=== PATIENT | female | born 1955 | race Caucasian/White ===

== ENCOUNTER 2018-01-27 08:03 | Emergency (ER) | payer MEDICAID, OTHER ==
--- NOTE | 2018-01-27 09:02 | EDPHY ---
HPI/HX/ROS/PE/MDM Narrative: CHIEF COMPLAINT: Dizziness, lightheadedness HPI: The patient is a 62 y/o female arriving with her complaining of dizziness onset yesterday. Her dizziness began upon sitting up out of bed yesterday and has been persistent since then. Initially she describes it as "room-spinning" yesterday morning upon waking, but reports this has subsided and it's now a sensation of lightheadedness "like a hangover." Symptoms improve when lying down and when walking. She denies chest pain, dyspnea, vision changes , weakness, numbness, balance issues, fever, urinary symptoms, recent trauma, or recent illness. She does feel some mild tingling in her hands and feet bilaterally. She denies new medications or vitamins. No history of cardiac disease. She notes she saw her PCP on Monday, 4 days ago, for ongoing neck and shoulder pain and during that visit her blood pressure was elevated around 179 systolic. She was advised to check her BP regularly over the next month before a follow up appointment, though she has not done this yet. She is scheduled to get x- rays of her neck. REVIEW OF SYSTEMS: A comprehensive 10 system review of systems is otherwise negative aside from elements mentioned in the history of present illness. PMH: "shaky hand thing for 20 years;" rotator cuff injury SOCIAL HISTORY: at bedside. Lives in [place]. Retired. PHYSICAL EXAM: General:Patient is alert, in no acute distress. ENT:Eyes are normal to inspection. EOMI. ENT inspection normal. Neck: Normal inspection. Full range of motion. Respiratory:No respiratory distress. Breath sounds normal bilaterally. Cardiovascular: Regular rate and rhythm. Strong peripheral pulses. Normal cap refill. Abdomen:The abdomen is nontender to palpation. There are no peritoneal signs. Back: Normal to inspection. No tenderness to palpation. Skin: Normal color. No rash. Warm and dry. Extremities: Normal appearance. Full range of motion. Neuro: Oriented x3. Normal motor function. Normal sensory function. No pronator drift. Normal [id number] bilaterally. Normal [id number] bilaterally. ED Course: This is a 62 y/o female who presents with a 1-day history of dizziness and lightheadedness. She notes her blood pressure was high at a PCP visit earlier this week and she's had ongoing neck and shoulder pain that she feels could be contributing to her symptoms. Her exam is unremarkable. Nonfocal neuro exam. Plan for IV, labs, UA, EKG, and cervical spine x-ray. 1L IV NS ordered. The 12 lead EKG was interpreted by myself. See hard copy and/or "tracemaster" electronic copy for interpretation. C-spine x-ray negative. Labs including troponin are normal. Reassessed patient and discussed findings. I've identified no concerning cause for her lightheadedness thus far. She understands the etiology is unknown, but would like to return home at this time. She will be discharged with standard care and follow up instructions. Return precautions discussed. - Data Points Imaging Results: Imaging Impressions Cervical Spine X-Ray 01/27/18 09:13 Impression: No source for dizziness identified. Imaging: I viewed and interpreted images myself Laboratory Results: Laboratory Results 01/27/18 09:35 01/27/18 09:35 01/27/18 01/27/18 01/27/18 09:41 09:35 09:35 WBC 6.21 10^3/uL 10^3/uL (3.80-9.50) RBC 5.01 10^6/uL 10^6/uL (4.18-5.33) Hgb 14.7 g/dL g/dL (12.6-16.3) Hct 43.1 % % (38.0-47.0) MCV 86.0 fL fL (81.5-99.8) MCH 29.3 pg pg (27.9-34.1) MCHC 34.1 g/dL g/dL (32.4-36.7) RDW 12.9 % % (11.5-15.2) Plt Count 208 10^3/uL 10^3/uL (150-400) MPV 11.1 fL fL (8.7-11.7) Neut % (Auto) 63.9 % % (39.3-74.2) Lymph % (Auto) 29.3 % % (15.0-45.0) [place] % (Auto) 4.3 % L % (4.5-13.0) Eos % (Auto) 1.6 % % (0.6-7.6) Baso % (Auto) 0.6 % % (0.3-1.7) Nucleat RBC Rel Count 0.0 % % (0.0-0.2) Absolute Neuts (auto) 3.96 10^3/uL 10^3/uL (1.70-6.50) Absolute Lymphs (auto) 1.82 10^3/uL 10^3/uL (1.00-3.00) Absolute Monos (auto) 0.27 10^3/uL L 10^3/uL (0.30-0.80) Absolute Eos (auto) 0.10 10^3/uL 10^3/uL (0.03-0.40) Absolute Basos (auto) 0.04 10^3/uL 10^3/uL (0.02-0.10) Absolute Nucleated RBC 0.00 10^3/uL 10^3/uL (0-0.01) Immature Gran % 0.3 % % (0.0-1.1) Immature Gran # 0.02 10^3/uL 10^3/uL (0.00-0.10) Sodium 142 mEq/L mEq/L (135-145) Potassium 4.2 mEq/L mEq/L (3.3-5.0) Chloride 111 mEq/L H mEq/L (97-110) Carbon Dioxide 22 mEq/l mEq/l (22-31) Anion Gap 9 mEq/L mEq/L (6-14) BUN 19 mg/dL mg/dL (7-23) Creatinine 0.9 mg/dL mg/dL (0.6-1.0) Estimated GFR > 60 Glucose 115 mg/dL H mg/dL (70-100) Calcium 9.8 mg/dL mg/dL (8.5-10.4) POC Troponin I 0.00 ng/mL ng/mL (0.00-0.08) Medications Given: Discontinued Medications Sodium Chloride (Ns) 1,000 mls @ 0 mls/hr IV EDNOW ONE; Wide Open PRN Reason: Protocol Stop: 01/27/18 09:14 Last Admin: 01/27/18 09:37 Dose: 1,000 mls Point of Care Test Results: Chemistry 01/27/18 09:41 POC Troponin I 0.00 ng/mL ng/mL (0.00-0.08) General Time Seen by Provider: 01/27/18 08:31 Initial Vital Signs: Initial Vital Signs Temperature (C) 36.7 C 01/27/18 08:16 Heart Rate 70 01/27/18 08:16 Respiratory Rate 16 01/27/18 08:16 Blood Pressure 156/86 H 01/27/18 08:16 O2 Sat (%) 97 01/27/18 08:16 O2 Delivery Mode Room Air Allergies/Adverse Reactions: No Known Allergies Allergy (Unverified 01/27/18 08:16) Home Medications: Medication Instructions Recorded Aspirin 81mg (*) 01/27/18 Departure - Departure Disposition: Home, Routine, Self-Care Clinical Impression: Lightheadedness Condition: Good Instructions: Lightheadedness (ED) Additional Instructions: Please follow up with your primary care provider for unimproved symptoms over the next 2-3 days. Return to the ED for worsening of condition. Referrals: Susana Butler MD [Primary Care Provider] - As per Instructions Report Scribed for: Rico Lawler Report Scribed by: Rita Galvez Date of Report: 01/27/18 Time of Report: 08:42 Physician Review and Approval Statement: Portions of this note were transcribed by an ED scribe. I personally performed the history, physical exam, and medical decision making; and confirm the accuracy of the information in the transcribed note.
[2018-01-27] MEDS ORDERED: NS 1,000 ML IV ONE (09:13)
[2018-01-27 09:46] LABS: PLATELET COUNT 208 10^3/uL (150-400)
[2018-01-27 11:10] VITALS: BP 153/97
--- NOTE | 2018-01-29 20:27 | CPEKG ---
Test Reason : OPEN Blood Pressure : / mmHG Vent. Rate : 069 BPM Atrial Rate : 068 BPM P-R Int : 135 ms QRS Dur : 071 ms QT Int : 442 ms P-R-T Axes : 066 051 048 degrees QTc Int : 474 ms Sinus rhythm Abnormal R-wave progression, early transition Confirmed by Rico Lawler ([id number]) on 01/29/2018 8:26:28 PM Referred By: Confirmed By:Rico Lawler
== END 2018-01-27 11:16 | disposition home or self-care (01) ==
DX: R42 Dizziness and giddiness (principal); E86.9 Volume depletion, unspecified; R03.0 Elevated blood-pressure reading, without diagnosis of hypertension
CPT/HCPCS: 84484-PO

== ENCOUNTER 2018-01-28 12:23 | Emergency (ER) | payer OTHER ==
--- NOTE | 2018-01-28 13:17 | EDPHY ---
HPI/HX/ROS/PE/MDM Narrative: CHIEF COMPLAINT: Lightheaded, headache HPI: The patient is a 62 y/o female seen here yesterday for lightheadedness and headache complaining of worsening of symptoms. Monday, she was seen by her primary care provider for pain in her back and shoulder blades at which time it was noted she has hypertension. Monday, she developed lightheadedness and was seen here. An etiology was not determined for her symptoms and she requested to leave and return if symptoms worsened. Today, she was sitting at her table when she got lightheaded, slumping towards the table. She has associated headache, numbness in her hands, numbness and tingling in her feet, and pain across her back and shoulder blades. She denies difficulty breathing or any other associated symptoms. She reports an increase in postnasal drip and pain when wearing shoes. REVIEW OF SYSTEMS: Aside from elements discussed in the HPI, a comprehensive 10-point review of systems was reviewed and is negative. PMH: Hypertension SOCIAL HISTORY: Lives in [place], , retired, at bedside PHYSICAL EXAM: General:Patient is alert, in no acute distress. ENT:Eyes are normal to inspection. ENT inspection normal. Neck: Normal inspection. Full range of motion. Respiratory:No respiratory distress. Breath sounds normal bilaterally. Cardiovascular: Regular rate and rhythm. Strong peripheral pulses. Normal cap refill. Abdomen:The abdomen is nontender to palpation. There are no peritoneal signs. There are normal bowel sounds. Back: Normal to inspection. No tenderness to palpation. Skin: Normal color. No rash. Warm and dry. Extremities: Normal appearance. Full range of motion. Neuro: Oriented x3. Normal motor function. Normal sensory function. Normal gait. manager electrical intact. No ataxia. ED Course: Study: CT of the head Indication: Lightheaded, headache, near syncope Results: CT scan of the head was obtained. The results of the study are: normal The study was read by the radiologist, Dr. Christianson. I viewed the images myself on the PACS system. The patient presents with worsening lightheadedness and headache. She was seen yesterday by me for similar symptoms and instructed to come back if the symptoms worsened. At this time, I feel a head CT is warranted. Plan for head CT , EKG, CBC, basic metabolic panel, TSH, troponin. 1:35 PM - The CT is normal. Labs pending at this time. 2:20 PM - Labs are not concerning. I offered the patient MRI or admission for observation. She refused. Follow up instructions and return precautions given. MDM: This patient returns to the ED after visit yesterday with continued episodes of 'lightheadedness.' Patient now asymptomatic. She tells me that she has had vertigo in the past and this is definitely not happening now. She also denies any difficulty walking or ataxia, making cerebellar CVA or vertebral insufficiency very unlikely. Repeat troponin and ECG remain normal, making cardiac etiology unlikely. Patient did not display any arrhythmia on tele monitor. No signs of infection. Patient understands that etiology of symptoms is unknown. We discussed option of starting the patient on an anti-hypertensive , and I have written for a low-dose of amlodipine. Patient will follow-up with her PCP closely. - Data Points Imaging Results: Imaging Impressions Head CT 01/28/18 13:12 Impression: Head CT within normal limits. Results called to Dr. Rico Lawler at 1:36 PM General information for patients regarding this examination can be found at [email or web address]. If you have questions or comments about this report, please contact me at (hospital) or [phone] (cell). Laboratory Results: Laboratory Results 01/28/18 13:30 01/28/18 13:30 01/28/18 01/28/18 01/28/18 13:43 13:30 13:30 WBC 7.74 10^3/uL 10^3/uL (3.80-9.50) RBC 5.36 10^6/uL H 10^6/uL (4.18-5.33) Hgb 15.5 g/dL g/dL (12.6-16.3) Hct 46.0 % % (38.0-47.0) MCV 85.8 fL fL (81.5-99.8) MCH 28.9 pg pg (27.9-34.1) MCHC 33.7 g/dL g/dL (32.4-36.7) RDW 13.0 % % (11.5-15.2) Plt Count 210 10^3/uL 10^3/uL (150-400) MPV 11.3 fL fL (8.7-11.7) Neut % (Auto) 70.5 % % (39.3-74.2) Lymph % (Auto) 23.5 % % (15.0-45.0) [place] % (Auto) 4.0 % L % (4.5-13.0) Eos % (Auto) 1.2 % % (0.6-7.6) Baso % (Auto) 0.5 % % (0.3-1.7) Nucleat RBC Rel Count 0.0 % % (0.0-0.2) Absolute Neuts (auto) 5.46 10^3/uL 10^3/uL (1.70-6.50) Absolute Lymphs (auto) 1.82 10^3/uL 10^3/uL (1.00-3.00) Absolute Monos (auto) 0.31 10^3/uL 10^3/uL (0.30-0.80) Absolute Eos (auto) 0.09 10^3/uL 10^3/uL (0.03-0.40) Absolute Basos (auto) 0.04 10^3/uL 10^3/uL (0.02-0.10) Absolute Nucleated RBC 0.00 10^3/uL 10^3/uL (0-0.01) Immature Gran % 0.3 % % (0.0-1.1) Immature Gran # 0.02 10^3/uL 10^3/uL (0.00-0.10) Sodium 143 mEq/L mEq/L (135-145) Potassium 3.7 mEq/L mEq/L (3.3-5.0) Chloride 109 mEq/L mEq/L (97-110) Carbon Dioxide 21 mEq/l L mEq/l (22-31) Anion Gap 13 mEq/L mEq/L (6-14) BUN 16 mg/dL mg/dL (7-23) Creatinine 0.8 mg/dL mg/dL (0.6-1.0) Estimated GFR > 60 Glucose 97 mg/dL mg/dL (70-100) Calcium 9.8 mg/dL mg/dL (8.5-10.4) POC Troponin I 0.00 ng/mL ng/mL (0.00-0.08) TSH Pending Point of Care Test Results: Chemistry 01/28/18 13:43 POC Troponin I 0.00 ng/mL ng/mL (0.00-0.08) General Time Seen by Provider: 01/28/18 12:33 Initial Vital Signs: Initial Vital Signs Temperature (C) 37.0 C 01/28/18 12:26 Heart Rate 88 01/28/18 12:26 Respiratory Rate 20 01/28/18 12:26 Blood Pressure 156/82 H 01/28/18 12:26 O2 Sat (%) 97 01/28/18 12:26 O2 Delivery Mode Room Air Allergies/Adverse Reactions: No Known Allergies Allergy (Verified 01/28/18 12:25) Home Medications: Medication Instructions Recorded Aspirin 81mg (*) 01/27/18 amLODIPine BESYLATE [Norvasc 2.5 2.5 mg PO DAILY #10 tab 01/28/18 mg (*)] Departure - Departure Disposition: Home, Routine, Self-Care Clinical Impression: Lightheadedness Headache Qualifiers: Headache type: unspecified Headache chronicity pattern: acute headache Intractability: not intractable Qualified Code(s): R51 - Headache Condition: Good Instructions: Acute Headache (ED), Near Syncope (ED), Lightheadedness (ED) Additional Instructions: 1. Please follow up with your primary care provider for continued symptoms in 2 to 3 days. 2. Return to the emergency department for any worsening of condition. Referrals: Susana Butler MD [Primary Care Provider] - As per Instructions Prescriptions: amLODIPine BESYLATE [Norvasc 2.5 mg (*)] 2.5 mg PO DAILY #10 tab Report Scribed for: Rico Lawler Report Scribed by: Ayala Gutierrez Date of Report: 01/28/18 Time of Report: 13:19 Physician Review and Approval Statement: Portions of this note were transcribed by an ED scribe. I personally performed the history, physical exam, and medical decision making; and confirm the accuracy of the information in the transcribed note.
[2018-01-28 13:51] LABS: PLATELET COUNT 210 10^3/uL (150-400)
[2018-01-28 14:39] VITALS: BP 181/113
--- NOTE | 2018-01-29 20:27 | CPEKG ---
Test Reason : OPEN Blood Pressure : / mmHG Vent. Rate : 061 BPM Atrial Rate : 061 BPM P-R Int : 127 ms QRS Dur : 076 ms QT Int : 450 ms P-R-T Axes : 052 016 022 degrees QTc Int : 454 ms Sinus rhythm Atrial premature complex Low voltage, precordial leads Abnormal R-wave progression, early transition Confirmed by Rico Lawler ([id number]) on 01/29/2018 8:27:39 PM Referred By: Confirmed By:Rico Lawler
== END 2018-01-28 14:38 | disposition home or self-care (01) ==
DX: R42 Dizziness and giddiness (principal); R51 Headache; R55 Syncope and collapse
CPT/HCPCS: 84484-PO

== ENCOUNTER → 2018-05-11 | Outpatient (CLI) | payer OTHER ==
[~2018-05-11] MED LIST: LIDOCAINE 1% 300 MG/30 ML SDV ONE
[2018-05-11 09:31] LABS: INR 0.95 (0.83-1.16); PROTIME(PATIENT) 12.9 SEC (12.0-15.0)
== END ==
LOC: FIMAGING 08:24
PROVIDERS: ATTEND Physician Assistant Medical
PROC: 009U3ZX Drainage of Spinal Canal, Percutaneous Approach, Diagnostic (ICD-10-PCS; principal; 2018-05-11)
DX: R51 Headache (principal)

== ENCOUNTER → 2018-06-15 | Outpatient (CLI) | payer OTHER | LOC: FIMAGING 13:30 ==

== ENCOUNTER 2018-07-11 10:53 | Emergency (ER) | payer OTHER ==
--- NOTE | 2018-07-11 11:17 | EDPHY ---
HPI/HX/ROS/PE/MDM Narrative: CHIEF COMPLAINT: HPI: This patient is a 63-year-old female complaining of lightheadedness and shakiness ongoing since January,. She was initially evaluated twice in this emergency department for these symptoms, and has subsequently followed up with neurology over the past several months. She has undergone MRI of her brain and neck as well as a lumbar puncture, and reports these were all negative. Her symptoms have been worsening progressively since onset, and are worse today than ever. She feels lightheaded and shaky "all the time 24 hours per day, I can hardly sleep". She endorses a sensation of racing heart while at rest. At her last neurology appointment one week ago, she was referred to cardiology and is scheduled for an anointment today at 1:15. She feels her symptoms are so severe today that she would not make it to that appointment and presents here to the emergency department for evaluation. She denies any recent head or neck trauma. No fever, nausea, chest pain, difficulty breathing, or other associated symptoms. REVIEW OF SYSTEMS: A comprehensive 10 system review of systems is otherwise negative aside from elements mentioned in the history of present illness and medical decision making. PMH: Denies apart from elements discussed in HPI. SOCIAL HISTORY: at bedside. Lives in [place]. Retired. PHYSICAL EXAM: General:Patient is alert, in no acute distress. ENT:Eyes are normal to inspection. ENT inspection normal. Neck: Normal inspection. Full range of motion. Respiratory:No respiratory distress. Breath sounds normal bilaterally. Cardiovascular: Regular rate and rhythm. Strong peripheral pulses. Normal cap refill. Abdomen:The abdomen is nontender to palpation. There are no peritoneal signs. There are normal bowel sounds. Back: Normal to inspection. No tenderness to palpation. Skin: Normal color. No rash. Warm and dry. Extremities: Normal appearance. Full range of motion. Neuro: Oriented x3. Normal motor function. Normal sensory function. ED Course: 63-year-old female complaining of lightheadedness and shakiness ongoing since January,. She was scheduled for a cardiology appointment this afternoon for followup. Plan for EKG, chest x-ray, labs including CBC, chemistries, troponin. EKG was ordered and interpreted by myself. Please see [employer] system for official reading. Laboratory studies unremarkable. Troponin 0.00. Chest x-ray is negative for acute processes. Discussed options for further evaluation with the patient. She would like to attend her outpatient cardiology appointment if this can be reinstated for this afternoon. Plan to consult with cardiology. Spoke with JARAD Arreola for cardiology. Patient is able to retain her appointment this afternoon. Plan to discharge in good condition directly to cardiology for followup. Follow up and return precautions discussed. The patient is comfortable with this plan. MDM: This patient presents for ongoing symptoms of approximately 6 months duration. She has been seen in the ED three times now by myself over that period with negative extensive workup. She has also had extensive negative outpatient evaluation by Neurology including negative MRI and LP. She initially had an appointment with Cardiology at 1:30pm today but came to the ED instead. I discussed options with her including admission to the hospital for observation vs. discharge and follow-up with Cardiology as scheduled. She has chosen the latter, and feels comfortable enough to walk over there. I called Thu from Cardiology who was able to reinstate her original appointment which had been canceled. - Data Points Imaging Results: Imaging Impressions Chest X-Ray 07/11/18 11:14 Impression: Normal chest. Imaging: I viewed and interpreted images myself Laboratory Results: Laboratory Results 07/11/18 11:36 07/11/18 11:36 07/11/18 07/11/18 07/11/18 11:52 11:36 11:36 WBC 6.77 10^3/uL 10^3/uL (3.80-9.50) RBC 5.16 10^6/uL 10^6/uL (4.18-5.33) Hgb 14.9 g/dL g/dL (12.6-16.3) Hct 44.5 % % (38.0-47.0) MCV 86.2 fL fL (81.5-99.8) MCH 28.9 pg pg (27.9-34.1) MCHC 33.5 g/dL g/dL (32.4-36.7) RDW 13.0 % % (11.5-15.2) Plt Count 227 10^3/uL 10^3/uL (150-400) MPV 11.6 fL fL (8.7-11.7) Neut % (Auto) 69.9 % % (39.3-74.2) Lymph % (Auto) 24.4 % % (15.0-45.0) [place] % (Auto) 4.0 % L % (4.5-13.0) Eos % (Auto) 1.0 % % (0.6-7.6) Baso % (Auto) 0.6 % % (0.3-1.7) Nucleat RBC Rel Count 0.0 % % (0.0-0.2) Absolute Neuts (auto) 4.73 10^3/uL 10^3/uL (1.70-6.50) Absolute Lymphs (auto) 1.65 10^3/uL 10^3/uL (1.00-3.00) Absolute Monos (auto) 0.27 10^3/uL L 10^3/uL (0.30-0.80) Absolute Eos (auto) 0.07 10^3/uL 10^3/uL (0.03-0.40) Absolute Basos (auto) 0.04 10^3/uL 10^3/uL (0.02-0.10) Absolute Nucleated RBC 0.00 10^3/uL 10^3/uL (0-0.01) Immature Gran % 0.1 % % (0.0-1.1) Immature Gran # 0.01 10^3/uL 10^3/uL (0.00-0.10) Sodium 140 mEq/L mEq/L (135-145) Potassium 4.0 mEq/L mEq/L (3.5-5.2) Chloride 107 mEq/L mEq/L (97-110) Carbon Dioxide 21 mEq/l L mEq/l (22-31) Anion Gap 12 mEq/L mEq/L (6-14) BUN 23 mg/dL mg/dL (7-23) Creatinine 0.9 mg/dL mg/dL (0.6-1.0) Estimated GFR > 60 Glucose 108 mg/dL H mg/dL (70-100) Calcium 9.9 mg/dL mg/dL (8.5-10.4) POC Troponin I 0.00 ng/mL ng/mL (0.00-0.08) Point of Care Test Results: Chemistry 07/11/18 11:52 POC Troponin I 0.00 ng/mL ng/mL (0.00-0.08) General Time Seen by Provider: 07/11/18 11:13 Initial Vital Signs: Initial Vital Signs Temperature (C) 36.7 C 07/11/18 11:08 Heart Rate 67 07/11/18 11:08 Respiratory Rate 20 07/11/18 11:08 Blood Pressure 152/93 H 07/11/18 11:08 O2 Sat (%) 98 07/11/18 11:08 O2 Delivery Mode Nasal Cannula O2 (L/minute) 2 Allergies/Adverse Reactions: No Known Allergies Allergy (Verified 07/11/18 11:07) Home Medications: Medication Instructions Recorded NK [No Known Home Meds] 07/11/18 Departure - Departure Disposition: Home, Routine, Self-Care Clinical Impression: Tremor, Dyspnea Instructions: Dyspnea (ED) Additional Instructions: Go directly to your assembler 1st shift appointment at [facility]. Referrals: Susana Butler MD [Primary Care Provider] - As per Instructions Report Scribed for: Rico Lawler Report Scribed by: Elvia Wolf Date of Report: 07/11/18 Time of Report: 13:32 Physician Review and Approval Statement: Portions of this note were transcribed by an ED scribe. I personally performed the history, physical exam, and medical decision making; and confirm the accuracy of the information in the transcribed note.
[2018-07-11 12:07] LABS: PLATELET COUNT 227 10^3/uL (150-400)
[2018-07-11 12:50] VITALS: BP 143/97
--- NOTE | 2018-07-11 14:09 | CPEKG ---
Test Reason : OPEN Blood Pressure : / mmHG Vent. Rate : 066 BPM Atrial Rate : 065 BPM P-R Int : 133 ms QRS Dur : 071 ms QT Int : 427 ms P-R-T Axes : 047 045 052 degrees QTc Int : 448 ms Sinus rhythm Abnormal R-wave progression, early transition Confirmed by Rico Lawler ([id number]) on 07/11/2018 2:08:38 PM Referred By: Rico Lawler Confirmed By:Rico Lawler
== END 2018-07-11 13:02 | disposition home or self-care (01) ==
DX: R25.1 Tremor, unspecified (principal); R06.00 Dyspnea, unspecified; R42 Dizziness and giddiness
CPT/HCPCS: 84484-ER